=== PATIENT | male | born 1960 | race African-American/Black ===

== ENCOUNTER 2017-11-13 16:16 | Emergency (ER) | payer SELFPAY, OTHER | END 2017-11-13 19:00 | disposition home or self-care (01) | LOC: ER 16:16 | DX: S53.401A Unspecified sprain of right elbow, initial encounter (principal); I10 Essential (primary) hypertension; X58.XXXA Exposure to other specified factors, initial encounter; Y93.89 Activity, other specified; Y92.89 Other specified places as the place of occurrence of the external cause; Y99.8 Other external cause status | CPT/HCPCS: 73080; 99284 ==